=== PATIENT | male | born 1995 | race Hispanic/Latino ===

== ENCOUNTER 2019-04-24 22:38 | Emergency (ER) | payer OTHER ==
[~2019-04-24] VITALS: Ht 167.6 cm; Wt 90.7 kg
[2019-04-24 23:33] VITALS: BP 151/79
--- NOTE | 2019-04-24 23:39 | ER.PDOC ---
General Chief Complaint: Requesting Medical Care Stated Complaint: RASH Time seen by MD: 23:36 Source: patient Exam Limitations: no limitations History of Present Illness Initial Comments Skin rash for years Severity: moderate Location: generalized Quality: itchy Constitutional: no symptoms reported Respiratory: no symptoms reported Cardiovascular: no symptoms reported Gastrointestinal: no symptoms reported Skin: see HPI All Other Systems: Reviewed and Negative Physical Exam General Appearance: alert, no distress Skin: skin rash Location: generalized Character: macular EENT: eyes nml inspection, lips/gums nml, pharynx nml Neck: trachea midline, no swelling Respiratory: no resp. distress, breath sounds nml CVS: reg. rate & rhythm, heart sounds nml Abdomen: non-tender, no organomegaly NEURO/PSYCH: oriented x 3, CN's nml as tested, motor nml, sensation nml, mood/affect nml Departure Time of Disposition: 23:37 Disposition: 01 HOME, SELF-CARE Impression: Primary Impression: Tinea versicolor Condition: Stable Referrals: PCP,UNKNOWN (PCP) PRIMARY CARE PROVIDER Additional Instructions: Ketoconazole Topical F/U with your Corporate Counsel as scheduled. Duration or Time Spent with Pa: 20 mins YASMANY BERNABE MD Apr 24, 2019 23:39
== END 2019-04-24 23:46 | disposition home or self-care (01) ==
LOC: ER 22:38
DX: B36.0 Pityriasis versicolor (principal)
CPT/HCPCS: 99282